=== PATIENT | male | born 1990 | race Caucasian/White ===

== ENCOUNTER 2017-11-01 15:08 | Emergency (ER) | payer MEDICAID ==
[~2017-11-01] VITALS: Ht 190.5 cm; Wt 96.2 kg
[2017-11-01 15:23] VITALS: Ht 190.5 cm; Wt 96.2 kg
[2017-11-01 17:34] VITALS: BP 137/72
== END 2017-11-01 17:34 | disposition home or self-care (01) ==
LOC: ED 15:08
DX: R10.9 Unspecified abdominal pain (principal)